=== PATIENT | male | born 1965 | race African-American/Black ===

== ENCOUNTER 2022-06-23 07:44 | Emergency (ER) | payer BC ==
[~2022-06-23] VITALS: Ht 175.3 cm; Wt 100.0 kg
[2022-06-23] MEDS ORDERED: metformin (07:49)
[2022-06-23] MEDS ORDERED: NITROGLYCERIN OINT 1GM/INCH UDPKT TD NR (08:15)
[2022-06-23] MEDS ORDERED: ACETAMINOPHEN 500MG TABLET PO NR (08:15)
[2022-06-23] MEDS ORDERED: CLONIDINE 0.2MG TABLET PO NR (08:15)
[2022-06-23 09:03] LABS: CHLORIDE 98 mEq/L (98-107)
[2022-06-23] MEDS ORDERED: INSULIN REGULAR (HUMULIN R) 300UNITS/3ML VIAL IV ONE (09:30)
[2022-06-23 09:44] LABS: CHLORIDE 99 mEq/L (98-107)
[2022-06-23 09:50] LABS: BASOPHILS % 0.4 % (0.0-2.0); EOSINOPHILS % 4.2 % (0.0-5.0); HEMATOCRIT. 42.3 % (42.0-52.0); HEMOGLOBIN. 14.8 g/dL (14.0-18.0); LYMPHOCYTES % 36.3 % (20.0-50.0); MEAN CORPUSCULAR HEMOGLOBIN 27.4 pg (28.0-32.0); MEAN CORPUSCULAR VOLUME 78.4 fL (80.0-94.0); MEAN PLATELET VOLUME 8.8 fl (7.4-10.4); MONOCYTES % 10.8 % (2.0-8.0); NEUTROPHILS % 48.3 % (40.0-76.0); PLATELET 226 x1000/uL (130-400); RED CELL DISTRIBUTION WIDTH 13.5 % (11.6-14.6)
[2022-06-23 09:58] LABS: PARTIAL THROMBOPLASTIN TIME 24.7 sec (23.4-31.0); PROTHROMBIN TIME 11.1 sec (9.6-11.0)
[2022-06-23] MEDS ORDERED: IOHEXOL-350 100 ML BOTTLE ONE (11:42)
[2022-06-23] MEDS ORDERED: ASPIRIN 325MG EC TABLET PO ONE (12:15)
[2022-06-23 20:00] VITALS: BP 113/69
== END 2022-06-23 21:06 | disposition short-term general hospital (02) ==
LOC: ER 07:48
DX: I63.9 Cerebral infarction, unspecified (principal); I16.0 Hypertensive urgency; E11.9 Type 2 diabetes mellitus without complications; Z20.822 Contact with and (suspected) exposure to COVID-19; Z79.84 Long term (current) use of oral hypoglycemic drugs; Z91.14 Patient's other noncompliance with medication regimen
CPT/HCPCS: 36415; 70450; 70496; 70498; 71045; 80053; 83880; 85025; 85610; 85730; 87426; 93005; 96374; 99285; C9803; J1815; Q9967; Z7610